=== PATIENT | male | born 1965 | race Caucasian/White ===

== ENCOUNTER 2016-10-26 06:56 | Emergency (ER) | payer OTHER ==
[2016-10-26 07:09] VITALS: BP 156/88; PULSE 82; TEMP 98.2; BMI 25.1
--- NOTE | 2016-10-26 08:12 | PDOC ---
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 He states around 3:30am he fell onto his left arm/side. He has had left shoulder pain ever since and stated it was very difficult to take his shirt off this morning when he got home. He denies f/c, head trauma, LOC, neck pain, numbness/tingling in upper extremity. The patient took 1800mg of Ibuprofen prior to coming to the ER and states it feels much better. Vital signs on arrival are within normal limits. REVIEW OF SYSTEMS: GENERAL/CONSTITUTIONAL: No fever/chills. No weakness. No weight change. HEAD, EYES, EARS, NOSE AND THROAT: No change in vision. No ear pain or discharge. No sore throat. GENITOURINARY: No dysuria, frequency, or change in urination. MUSCULOSKELETAL: +left shoulder pain. No neck or back pain. SKIN: No rash or easy bruising. NEUROLOGIC: No headache, vertigo, loss of consciousness, or loss of sensation. PHYSICAL EXAM: VITAL_SIGNS: within normal limits GENERAL_APPEARANCE: alert, cooperative, no obvious discomfort. MENTAL_STATUS: speech clear, oriented X 3, responds appropriately to questions. NEURO: motor intact and sensory intact in injured extremity. EXTREMITIES: Patient cannot abduct left arm > 90. Pt cannot reach behind his back with is left arm. No TTP of left AC joint. Shoulders and clavicles appear symmetrical without deformities or crepitus. Equal settlement processor strength b/l. SKIN: warm, dry, good color. Past History - Past Medical History Allergies/Adverse Reactions: Allergies Allergy/AdvReac Type Severity Reaction Status Date / Time No Known Allergies Allergy Verified 10/26/16 07:08 Home Medications: Ambulatory Orders Levothyroxine [Synthroid -] 75 mcg PO DAILY 10/26/16 Other medical history: none - Psycho/Social/Smoking Cessation Hx Anxiety: No Suicidal Ideation: No Smoking History: Never smoked Hx Alcohol Use: No Drug/Substance Use Hx: No Substance Use Type: None *Physical Exam - Vital Signs Last Vital Signs Temp Pulse Resp BP Pulse Ox 98.2 F 82 20 156/88 99 10/26/16 07:05 10/26/16 07:05 10/26/16 07:05 10/26/16 07:05 10/26/16 07:05 Medical Decision Making - Medical Decision Making A/P: 50 y/o afebrile male with left shoulder injury. Appears to be rotator cuff injury. Plan is as follows: 1. left shoulder xray Left shoulder xray IMPRESSION: No acute pathology Informed the patient of the results and dx of rotator cuff injury. Provided sling for comfort. Suggested 600mg of motrin every 6 hours for pain/swelling with food as needed, ice/heat to affected shoulder, shoulder exercises and ortho follow up. The patient verbalizes understanding of all instructions, has no further questions and is awaiting discharge. *DC/Admit/Observation/Transfer Diagnosis at time of Disposition: Rotator cuff strain Qualifiers: Encounter type: initial encounter Laterality: left Qualified Code(s): S46.012A - Strain of muscle(s) and tendon(s) of the rotator cuff of left shoulder, initial encounter - Discharge Dispostion Disposition: HOME Condition at time of disposition: Good - Referrals Referrals: Nadir Dillard MD [Staff Physician] - Call tomorrow Nadir Pisano MD [Primary Care Provider] - Call tomorrow - Patient Instructions Printed Discharge Instructions: DI for Rotator Cuff Injury, How to Use a Sling Additional Instructions: Discharge Instructions: -Take 600mg of Ibuprofen/Motrin every 6 hours with food for pain -Use sling for comfort -Apply heating pad to affected shoulder -Walk your left hand up a wall multiple times per day to prevent frozen shoulder -Follow up with Dr. Dillard as soon as possible
== END 2016-10-26 10:00 | disposition home or self-care (01) ==
LOC: JER 06:56
DX: S46.012A Strain of muscle(s) and tendon(s) of the rotator cuff of left shoulder, initial encounter (principal); W19.XXXA Unspecified fall, initial encounter; Y93.89 Activity, other specified; Y92.89 Other specified places as the place of occurrence of the external cause; E03.9 Hypothyroidism, unspecified
CPT/HCPCS: 73030-TC-LT; 99282-25